=== PATIENT | female | born 1945 | race Caucasian/White ===

== ENCOUNTER 2020-08-23 15:11 | Outpatient (REF) | payer OTHER, SELFPAY ==
[2020-08-23 19:51] LABS: Microalb ug/mg Crea 137.7 ug/mg Cr
== END 2020-08-23 15:12 | disposition home or self-care (01) ==
LOC: NCHCN 15:11
PROVIDERS: PCP Physician Assistant; Visit Provider Physician Assistant
DX: R06.02 Shortness of breath (principal); E11.69 Type 2 diabetes mellitus with other specified complication
CPT/HCPCS: 82043; 82570

== ENCOUNTER 2021-05-23 16:25 | Outpatient (REF) | payer OTHER, SELFPAY ==
[2021-05-23 19:25] LABS: Anion Gap 9.5 mmol/L (3-11); BUN 11 mg/dL (7-18); CO2 26.5 mmol/L (21.0-32.0); CREATININE 0.8 mg/dL (0.55-1.02); Calcium 9.3 mg/dL (8.5-10.1); Chloride 102 mmol/L (98-107); Glucose 143 mg/dL (74-106); Potassium 4.6 mmol/L (3.5-5.1); Sodium 138 mmol/L (136-145)
== END 2021-05-23 16:26 | disposition home or self-care (01) ==
LOC: NCHCN 16:25
PROVIDERS: PCP Physician Assistant; Visit Provider Physician Assistant
DX: E11.69 Type 2 diabetes mellitus with other specified complication (principal)
CPT/HCPCS: 80048

== ENCOUNTER 2021-07-21 00:42 | Outpatient (CLI) | payer MEDICARE, SELFPAY ==
--- NOTE | 2021-07-21 | DI.CTLCSR_ITS ---
Exam(s) CT CHEST LUNG CANCER SCREEN EXAM: CT CHEST LUNG CANCER SCREEN CLINICAL HISTORY: CIGARETTE SMOKER, F17.210, SCREENING FOR LUNG CA. TECHNIQUE: Imaging Protocol: Low Dose Technique CONTRAST MATERIAL: None COMPARISON: No exams were available for comparison FINDINGS: CHEST: LUNGS: In the lateral aspect of the left upper lobe there is a pleural-based nodular infiltrate measu ring 9 by 6 millimeters. This requires follow-up. Mild infiltrate is noted in the inferior lingular segment of the left lung. There are no significant findings in the left lower lobe. No left pleura l effusion. In the opposite-right lung there is a small nodular infiltrate in the superior segment of the right l ower lobe measuring 5 millimeters. There is also an 8 x 6 millimeter nodule at the pleural reflectio n between the right upper and right middle lobes which is probably a pseudo nodule. There are no pleural effusions on either side. No focal findings evident in the trachea and mainstem bronchi. MEDIASTINUM: There is no obvious hilar nor mediastinal adenopathy. No axillary adenopathy. CARDIAC: Heart size is normal. Moderate coronary artery calcifications noted. There is a small carla cardial effusion with maximum thickness of 6 millimeters.Caliber of the thoracic aorta is within norm al limits. OTHER: Lowermost images reveal an exophytic nodule off the lateral aspect of the partially visualized left kidney measuring 2 x 2 cm. Difficult to determine if this is a simple cyst versus is homogeneo us nodule should undergo ultrasound. OSSEOUS: No significant osseous lesions.. IMPRESSION: 1. There is a 9 x 6 millimeter pleural base nodular infiltrate in the left upper lobe and there is 5 millimeter nodular infiltrate in the superior segment of the right lower lobe. These require follow- up. 2. There is an 8 x 6 millimeter probable pseudo nodule at the pleural reflection between the right up per and right middle lobes. There are no pleural effusions on either side, however, there is a peric ardial effusion which measures 6 millimeters thickness and also requires follow-up. 3. Lung RADS Cat 4A (S) - Suspicious: Findings for which additional diagnostic testing and/or tissue sampling recommended Also(S) modifier added because of other findings as described above which require follow-up including pericardial effusion and left kidney finding. Lung-RADS 1.0 CATEGORIES: Category 0 - Prior chest CT exam(s) being located for comparison. Category 1 - Annual screening in 12 months. No nodules or definitely benign nodules. Category 2 - Annual screening in 12 months. Benign appearance. Nodules with low likelihood of becomin g active cancer. Category 3 - 6-month follow-up. Probably benign. Short-term follow-up suggested. Nodules with low lik elihood of becoming active cancer. Category 4A - 3-month follow-up and CT/PET if >8 mm in size. Suspicious finding. Findings which requi re additional testing. Category 4B - Findings which require additional testing and tissue sampling. Category 4X - Category 3 or 4 nodules with additional features or imaging findings that increases the suspicion of malignancy. Modifier S- Potentially clinically significant findings (non lung cancer) RADIATION DOSE DELIVERED: 72.9mGy.cm Total DLP 1.84mGy CTDIvol DATA REPOSITORY: All CT scans at this facility are submitted to the National Radiology Data Registry (NRDR) Dose Index Registry (DIR) with the [employer] ([employer]). RADIATION OPTIMIZATION: All CT scans at this facility use at least one of these dose optimization te chniques: automated exposure control; mA and/or kV adjustment per patient size (includes targeted exa ms where dose is matched to clinical indication); or iterative reconstruction.
== END 2021-07-21 01:02 ==
PROVIDERS: PCP Physician Assistant; Visit Provider Physician Assistant
DX: Z12.2 Encounter for screening for malignant neoplasm of respiratory organs (principal); F17.210 Nicotine dependence, cigarettes, uncomplicated; R91.8 Other nonspecific abnormal finding of lung field; I31.3 Pericardial effusion (noninflammatory); R91.1 Solitary pulmonary nodule; N28.89 Other specified disorders of kidney and ureter
CPT/HCPCS: 71271

== ENCOUNTER 2021-10-11 16:15 | Outpatient (REF) | payer MEDICARE, SELFPAY ==
[2021-10-11 20:56] LABS: Hemoglobin A1C 6.9 % (<5.7)
[2021-10-11 21:25] LABS: ALT 34 U/L (14-59); AST 23 U/L (15-37); Albumin 3.4 g/dL (3.4-5.0); Alkaline Phosphatase 88 U/L (46-116); Anion Gap 8.3 mmol/L (3-11); BUN 18 mg/dL (7-18); Bilirubin, Total 0.5 mg/dL (0.2-1.0); CO2 26.7 mmol/L (21.0-32.0); CREATININE 0.8 mg/dL (0.55-1.02); Calculated LDL 105 mg/dL (<100); Chloride 101 mmol/L (98-107); Cholesterol 177 mg/dL (<200); Glucose 116 mg/dL (74-106); HDL Cholesterol 56 mg/dL (40-60); Potassium 4.4 mmol/L (3.5-5.1); Sodium 136 mmol/L (136-145); TSH 1.92 uIU/mL (0.36-3.74); Total Protein 7.1 g/dL (6.4-8.2); Triglyceride 82 mg/dL (<150); Vitamin B12 776 pg/mL (193-986)
== END 2021-10-11 16:16 | disposition home or self-care (01) ==
LOC: NCHCN 16:15
PROVIDERS: PCP Physician Assistant; Visit Provider Physician Assistant
DX: E11.69 Type 2 diabetes mellitus with other specified complication (principal); R41.3 Other amnesia; E03.9 Hypothyroidism, unspecified; E78.5 Hyperlipidemia, unspecified
CPT/HCPCS: 80053; 80061; 82607; 83036; 84443

== ENCOUNTER → 2022-03-01 08:20 | Outpatient (BNVA) | payer MEDICARE, SELFPAY | PROVIDERS: PCP Physician Assistant; Referring Provider Physician Assistant; Visit Provider Psychiatry & Neurology Neurology | DX: I10 Essential (primary) hypertension (principal); E11.9 Type 2 diabetes mellitus without complications; G25.9 Extrapyramidal and movement disorder, unspecified | CPT/HCPCS: 99204 ==

== ENCOUNTER 2022-03-12 14:07 | Outpatient (REF) | payer MEDICARE, SELFPAY ==
--- NOTE | 2022-03-12 12:15 | SKI_PTH ---
PATIENT: Hansa De La Paz LOC: [facility]#:[id number] AGE/SX: 76/F ROOM: RE03/12/[address]: Samuel Velasco : 1945 BED: DIS: 03/12/2022 SPEC #: [id number] RECD: 03/13/22 12:10 STATUS: LESLIE REJones #: [id number] MERON: 03/12/22 12:[address]: Samuel Velasco DEPT: Surgical Specimen RECD BY: Fara Almaguer Tissues: 1 - SKIN BIOPSY(SHAVE/PUNCH) Procedures: SKIN LEVEL 4 Comments: [id number]
== END 2022-03-12 14:08 | disposition home or self-care (01) ==
LOC: NCHCN 14:07
PROVIDERS: PCP Physician Assistant; Visit Provider Physician Assistant
DX: L82.1 Other seborrheic keratosis (principal)
CPT/HCPCS: 88305